=== PATIENT | female | born 1995 | race Caucasian/White ===

== ENCOUNTER 2018-06-15 20:05 | Inpatient (IN) | payer OTHER ==
[2018-06-15] MEDS ORDERED: TUBERCULIN PPD 5 TU/0.1ML SYRINGE (IN PATIENT USE ONLY) ID ONE (20:32)
[2018-06-15 21:35] VITALS: BMI 34.7
[2018-06-15 21:57] LABS: RETICULOCYTES 2.33 % (0.5-1.5)
[2018-06-15 21:58] LABS: BASO % 0.2 % (0-2.0); EOS % 2.5 % (0-4.5); HEMATOCRIT 35.3 % (32.4-45.2); HEMOGLOBIN 12.4 GM/dL (10.7-15.3); LYMPH % 20.5 % (8-40); MCH 29.9 pg (25.7-33.7); MCHC 35.2 g/dl (32.0-36.0); MEAN CELL VOLUME 84.7 fl (80-96); MEAN PLT VOLUME 10.3 fl (7.5-11.1); NEUT % 69.8 % (42.8-82.8); PLATELET COUNT 195 K/MM3 (134-434); RBC 4.17 M/mm3 (3.60-5.2); RDW 14.9 % (11.6-15.6)
[2018-06-15 22:13] LABS: INR 1.03 (0.83-1.09); PROTHROMBIN TIME (PATIENT) 12.2 SEC (9.7-13.0)
[2018-06-15 22:16] LABS: ACTIVATED PTT 25.8 SECONDS (25.2-36.5)
[2018-06-15 22:37] LABS: URIC ACID 4.8 mg/dL (2.6-7.2)
[2018-06-15 22:38] LABS: ANION GAP 9 MMOL/L (8-16); BLOOD UREA NITROGEN 10 mg/dL (7-18); CALCIUM 8.7 mg/dL (8.5-10.1); CHLORIDE 104 mmol/L (98-107); CO2 24 mmol/L (21-32); CREATININE 0.8 mg/dL (0.55-1.3); GLUCOSE,RANDOM 83 mg/dL (74-106); POTASSIUM 4.3 mmol/L (3.5-5.1); SODIUM 137 mmol/L (136-145)
[2018-06-15] MEDS ORDERED: DINOPROSTONE 10 MG VAGINAL SUPPOSITORY VG ONE (23:15)
[2018-06-15 23:23] LABS: URINE APPEARANCE CLEAR; URINE BILIRUBIN NEGATIVE (<2.0 mg/dL); URINE COLOR LTYELLOW; URINE GLUCOSE (UA) NEGATIVE (NEGATIVE); URINE KETONE NEGATIVE (NEGATIVE); URINE LEUK ESTERASE NEGATIVE (NEGATIVE); URINE NITRITE NEGATIVE (NEGATIVE); URINE PROTEIN NEGATIVE (NEGATIVE); URINE UROBILINOGEN NEGATIVE mg/dL (0.2-1.0)
[2018-06-16] MEDS: DEXTROSE 5%-LACTATED RINGERS 1,000 ML IV SCH ×4 (02:55→21:34)
[2018-06-16] MEDS ORDERED: PROMETHAZINE HCL 25 MG/1 ML VIAL IVPUSH ONE (06:32)
[2018-06-16] MEDS ORDERED: BUTORPHANOL TARTRATE 1 MG/ML VIAL IVPB ONE (06:32)
--- NOTE | 2018-06-16 06:37 | HP ---
Past Medical History - Primary Care Physician PCP:: Anna Murillo - Admission Chief Complaint: Gestational Hypertension History of Present Illness: 22 yo P0 EGA 38.5 weeks admittrted due to gestational HTN for induction of labor No ROM RUQ pain bleeding History Source: Patient - Past Medical History ...: 1 ...Para: 0 ...Term: 0 ...: 0 ...Spon : 0 ...Induced : 0 ...Multiple Gestation: 0 ...LMP: 09/26/17 ... Weeks Gestation by Dates: 38.5 ...EDC by Dates: 06/24/18 - Past Surgical History Past Surgical History: Yes: None Hx Myomectomy: No Hx Transabdominal Cerclage: No - Smoking History Smoking history: Never smoked Have you smoked in the past 12 months: No - Alcohol/Substance Use Hx Alcohol Use: No History of Substance Use: reports: None - Social History Usual Living Arrangement: Yes: With Spouse History of Recent Travel: No Home Medications - Allergies Allergies/Adverse Reactions: Allergies Allergy/AdvReac Type Severity Reaction Status Date / Time No Known Allergies Allergy Verified 11/23/15 09:57 - Home Medications Home Medications: Ambulatory Orders Vitamins (Sjr) - 1 tab PO DAILY 05/07/18 Review of Systems - Review of Systems Constitutional: reports: No Symptoms Eyes: reports: No Symptoms HENT: reports: No Symptoms Neck: reports: No Symptoms Cardiovascular: reports: No Symptoms Respiratory: reports: No Symptoms Gastrointestinal: reports: No Symptoms Genitourinary: reports: No Symptoms Breasts: reports: No Symptoms Reported Musculoskeletal: reports: No Symptoms Integumentary: reports: No Symptoms Neurological: reports: No Symptoms Endocrine: reports: No Symptoms Hematology/Lymphatic: reports: No Symptoms Psychiatric: reports: No Symptoms Physical Exam - Maternity Vital Signs: Vital Signs Temperature 98.4 F 06/16/18 06:00 Pulse Rate 87 06/16/18 06:00 Respiratory Rate 20 06/16/18 06:00 Blood Pressure 114/50 L 06/16/18 06:00 O2 Sat by Pulse Oximetry (%) Constitutional: Yes: Well Nourished, No Distress Neck: Yes: WNL Cardiovascular: Yes: WNL Breast(s): Yes: WNL - Abdominal Exam/OB Fundal Height: 39 Number of Fetuses: Single Presentation: Vertex Contractions: No Heart Rate (range): 140 Category: I Decelerations: None - Vaginal Exam/OB Vaginal Bleediing: No Dilatation (cm): 2 Effacement (%): 50 Amniotic Membrane Status: Intact - Physical Exam Edema: No - Labs Lab Results: CBC, BMP 06/15/18 21:10 06/15/18 21:10 Hemorrhage Risk Assessment - Risk Factors Risk Score: 1 Risk Level: Medium Risk Problem List - Problems (1) Gestational hypertension Code(s): O13.9 - GESTATIONAL HTN W/O SIGNIFICANT PROTEINURIA, UNSP TRIMESTER (2) 38 weeks gestation of Code(s): Z3A.38 - 38 WEEKS GESTATION OF Assessment/Plan IUP at 38..5 weeks gestational HTN Plan Cervidil preeclampsia labs
--- NOTE | 2018-06-16 10:14 | PN ---
Ante-Partal Exam - Subjective Subjective: Pt having some cramping, no significant pain overnight. Vital Signs: Vital Signs Temperature 98.9 F 06/16/18 08:00 Pulse Rate 96 H 06/16/18 09:00 Respiratory Rate 18 06/16/18 09:00 Blood Pressure 129/79 06/16/18 09:00 O2 Sat by Pulse Oximetry (%) Bleeding: No Headache: No Visual changes: No Right upper quadrant pain: No Pain (scale 1-10): 2 - Contractions Contractions: Yes Regularity: Irregular Intensity: Mild Monitor Mode: External - Exam during Labor Heart Rate: 130 Variability: Moderate Category: I Monitor Accelerations: Present Monitor Decelerations: None Exam: Vaginal Dilatation (cm): 2.5 Effacement (%): 50 Amniotic Membrane Status: Intact Presentation: Vertex Station: -2 - Assessment/Plan Assessment/Plan: Cervidil removed at 9 am to start pitocin at this time epidural or IV pain meds as needed Gestational HTN diagnosed in office - BPs have been within normal range since admission, denies WOO/RUQ pain/changes in vision GBS negative continue current management
[2018-06-16] MEDS ORDERED: OXYTOCIN 30 UNITS in 0.9% NS 30 UNIT/500 ML INFUS.BAG IVPB SCH (10:15)
[2018-06-16] MEDS: ELECTROLYTE-148 SOLN 1,000 ML IV SCH (22:30)
[2018-06-16] MEDS ORDERED: FENTANYL/BUPIVACAINE/NS/PF - PCEA - 50 ML DISP.SYRIN EP ONE (22:58)
[2018-06-16] MEDS ORDERED: NALOXONE HCL 0.4 MG/ML VIAL IVPUSH PRN (23:08)
[2018-06-16] MEDS ORDERED: BUPIVACAINE HCL/PF 0.25% (2.5MG/ML) 10 ML VIAL ONE (23:11)
[2018-06-16] MEDS ORDERED: FENTANYL/BUPIVACAINE/NS/PF - PCEA - 50 ML DISP.SYRIN EP SCH (23:15)
[2018-06-17] MEDS ORDERED: FENTANYL/BUPIVACAINE/NS/PF - PCEA - 50 ML DISP.SYRIN EP ONE ×2 (03:51→08:25)
[2018-06-17] MEDS: ELECTROLYTE-148 SOLN 1,000 ML IV SCH ×2 (05:48→06:45)
[2018-06-17] MEDS ORDERED: CITRIC ACID/SODIUM CITRATE 30 ML UNIT-DOSE CUP PO ONE (09:15)
[2018-06-17] MEDS ORDERED: LIDO 2%/EPI 1:200000 PRESRVFRE (20 ML SDVIAL) ONE (10:22)
--- NOTE | 2018-06-17 10:23 | PN ---
Ante-Partal Exam - Subjective Subjective: Pt comfortable. Feeling cramps but not strong contractions. Vital Signs: Vital Signs Temperature 98.8 F 06/17/18 07:00 Pulse Rate 91 H 06/17/18 10:00 Respiratory Rate 18 06/17/18 10:00 Blood Pressure 133/79 06/17/18 10:00 O2 Sat by Pulse Oximetry (%) 100 06/17/18 10:00 Bleeding: No Headache: No Visual changes: No Right upper quadrant pain: No Pain (scale 1-10): 2 - Contractions Contractions: Yes Regularity: Irregular - Exam during Labor Variability: Moderate Category: I Monitor Accelerations: Present Monitor Decelerations: None Exam: Vaginal Dilatation (cm): 3 Effacement (%): 50 Amniotic Membrane Status: Ruptured Amniotic Fluid: Clear Presentation: Vertex Station: -2 - Assessment/Plan Assessment/Plan: 22 y/o with SIUP, IOL for gHTN, 38.6 weeks today FHTS at 1 AROm for clear fluid at this check start pitocin continue induction
--- NOTE | 2018-06-17 10:25 | PN ---
Ante-Partal Exam - Subjective Subjective: Pt comfortable s/p epidural. Vital Signs: Vital Signs Temperature 98.8 F 06/17/18 07:00 Pulse Rate 91 H 06/17/18 10:00 Respiratory Rate 18 06/17/18 10:00 Blood Pressure 133/79 06/17/18 10:00 O2 Sat by Pulse Oximetry (%) 100 06/17/18 10:00 Bleeding: Yes Bleeding Description: Mild Headache: No Visual changes: No Right upper quadrant pain: No Pain (scale 1-10): 0 - Contractions Contractions: Yes Regularity: Irregular Intensity: Mod/Strong Monitor Mode: External - Exam during Labor Variability: Moderate Category: I Monitor Accelerations: Present Monitor Decelerations: None Exam: Vaginal Dilatation (cm): 3 Effacement (%): 50 Amniotic Membrane Status: Ruptured Amniotic Fluid: Clear Presentation: Vertex Station: -2 - Assessment/Plan Assessment/Plan: No progress IOL for gHTN now 39 weeks discussed options with patient will plan for delivery risks/benefits/alternatives discussed consents signed nursing/anesthesia aware
[2018-06-17] MEDS ORDERED: ceFAZolin SODIUM 1 GM VIAL ONE (10:27)
[2018-06-17] MEDS ORDERED: OXYTOCIN 20 UNITS in 0.9% NS 20 UNIT/1,000 ML INFUS.BAG IV ONE (10:34)
[2018-06-17] MEDS ORDERED: MIDAZOLAM HCL 2 MG/2 ML SINGLE DOSE VIAL ONE (10:45)
[2018-06-17] MEDS ORDERED: IBUPROFEN 600 MG TABLET (FP) PO PRN (10:57)
[2018-06-17] MEDS ORDERED: oxyCODONE HCL 5 MG TABLET PO PRN ×2 (11:11)
[2018-06-17] MEDS ORDERED: METHYLERGONOVINE MALEATE 0.2 MG/1 ML AMP IM PRN (11:11)
[2018-06-17] MEDS ORDERED: OXYTOCIN 20 UNITS in 0.9% NS 20 UNIT/1,000 ML INFUS.BAG IV SCH (11:15)
--- NOTE | 2018-06-17 11:16 | OP ---
Operative Note - Note: Operative Date: 06/17/18 Pre-Operative Diagnosis: Failure to dilate/descend Operation: Primary delivery Findings: live male infant Post-Operative Diagnosis: Same as Pre-op Surgeon: Anna Murillo Risk Engineer: Octavio Wolfe Anesthesiologist/OPERATOR BEAR[employer] SYSTEMS: Hiren Correa Anesthesia: Epidural Specimens Removed: placenta Estimated Blood Loss (mls): 600 Operative Report Dictated: Yes
[2018-06-17] MEDS: PRENATAL VITAMINS W/ FOLIC ACID TABLET (FP) PO SCH (13:22)
[2018-06-18] MEDS: ACETAMINOPHEN 325 MG TABLET (FP) PO PRN ×3 (01:41→20:48)
[2018-06-18] MEDS: SIMETHICONE 80 MG TAB.CHEW (FP) PO PRN ×3 (01:41→20:48)
[2018-06-18] MEDS: IBUPROFEN 600 MG TABLET (FP) PO PRN ×3 (01:42→20:48)
[2018-06-18 08:30] LABS: BASO % 0.4 % (0-2.0); EOS % 0.9 % (0-4.5); HEMATOCRIT 34.3 % (32.4-45.2); LYMPH % 12.9 % (8-40); MCH 27.8 pg (25.7-33.7); MCHC 32.1 g/dl (32.0-36.0); MEAN CELL VOLUME 86.6 fl (80-96); MEAN PLT VOLUME 9.8 fl (7.5-11.1); MONO % 8.2 % (3.8-10.2); NEUT % 77.6 % (42.8-82.8); PLATELET COUNT 134 K/MM3 (134-434); RBC 3.95 M/mm3 (3.60-5.2); WHITE BLOOD COUNT 13.5 K/mm3 (4.0-10.0)
[2018-06-18] MEDS: PRENATAL VITAMINS W/ FOLIC ACID TABLET (FP) PO SCH (09:02)
--- NOTE | 2018-06-18 09:48 | PN ---
Post Progress Note - Subjective Subjective: Pt doing well. Pain controlled. Tolerating clear diet. Not yet ambulating. NO complaints. Type of Delivery: Primary C/S Vital Signs: Vital Signs Temperature 97.4 F L 06/18/18 06:00 Pulse Rate 81 06/18/18 06:00 Respiratory Rate 16 06/18/18 09:00 Blood Pressure 106/74 06/18/18 06:00 O2 Sat by Pulse Oximetry (%) 100 06/17/18 21:00 Uterus: Yes: Fundus Firm Incision: Yes: Dressing dry and intact Abdomen/GI: Yes: Abdomen soft, Tolerating PO (clears). No: Passing flatus Lochia, amount: Small Extremities: Yes: Calves non-tender Perineum: No: Laceration Activity: Ambulating - Labs Labs: CBC WBC 13.5 K/mm3 (4.0-10.0) H 06/18/18 07:45 RBC 3.95 M/mm3 (3.60-5.2) 06/18/18 07:45 Hgb 11.0 GM/dL (10.7-15.3) 06/18/18 07:45 Hct 34.3 % (32.4-45.2) 06/18/18 07:45 MCV 86.6 fl (80-96) 06/18/18 07:45 MCH 27.8 pg (25.7-33.7) 06/18/18 07:45 MCHC 32.1 g/dl (32.0-36.0) 06/18/18 07:45 RDW 15.0 % (11.6-15.6) 06/18/18 07:45 Plt Count 134 K/MM3 (134-434) D 06/18/18 07:45 MPV 9.8 fl (7.5-11.1) 06/18/18 07:45 Absolute Neuts (auto) 10.5 K/mm3 (1.5-8.0) H 06/18/18 07:45 Neutrophils % 77.6 % (42.8-82.8) 06/18/18 07:45 Lymphocytes % 12.9 % (8-40) D 06/18/18 07:45 Monocytes % 8.2 % (3.8-10.2) 06/18/18 07:45 Eosinophils % 0.9 % (0-4.5) 06/18/18 07:45 Basophils % 0.4 % (0-2.0) 06/18/18 07:45 Nucleated RBC % 0 % (0-0) 06/18/18 07:45 Retic Count 2.33 % (0.5-1.5) H 06/15/18 21:10 Haptoglobin 191 mg/dL (34-200) 06/15/18 21:10 Problem List - Problems (1) delivery delivered Code(s): O82 - ENCOUNTER FOR DELIVERY WITHOUT INDICATION Assessment/Plan 22 y/o POD#1 s/p primary delivery AFVSS regular diet encourage ambulation routine care
[2018-06-18] MEDS ORDERED: BISACODYL 10 MG SUPP.RECT RC PRN (11:11)
--- NOTE | 2018-06-18 15:38 | PN ---
Progress Note (short form) - Note Progress Note: Anesthesia postop note 22 y/o F s/p epidural anesthesia for labor and then section, duramorph POD#1, vss, aaox3, no complaints, sensory motor intact distally, pain well controlled. No anesthesia complications.
[2018-06-19] MEDS: ACETAMINOPHEN 325 MG TABLET (FP) PO PRN ×4 (01:56→20:59)
[2018-06-19] MEDS: IBUPROFEN 600 MG TABLET (FP) PO PRN ×3 (01:56→15:41)
[2018-06-19] MEDS: SIMETHICONE 80 MG TAB.CHEW (FP) PO PRN ×4 (01:56→20:59)
[2018-06-19] MEDS: PRENATAL VITAMINS W/ FOLIC ACID TABLET (FP) PO SCH (09:42)
--- NOTE | 2018-06-19 14:33 | PN ---
Post Progress Note - Subjective Subjective: 22 yo Para 1 status post primary , seen and evaluated. Doing well. Post Day: 2 Type of Delivery: Primary C/S Vital Signs: Vital Signs Temperature 98.6 F 06/19/18 08:46 Pulse Rate 77 06/19/18 08:46 Respiratory Rate 14 06/19/18 08:46 Blood Pressure 124/67 06/19/18 08:46 O2 Sat by Pulse Oximetry (%) 100 06/17/18 21:00 Breast Exam: Yes: Soft Uterus: Yes: Fundus Firm Incision: Yes: Dressing dry and intact Abdomen/GI: Yes: Abdomen soft, Tolerating PO Lochia: Yes: Rubra Lochia, amount: Small Extremities: Yes: Calves non-tender Activity: Ambulating - Labs Labs: CBC WBC 13.5 K/mm3 (4.0-10.0) H 06/18/18 07:45 RBC 3.95 M/mm3 (3.60-5.2) 06/18/18 07:45 Hgb 11.0 GM/dL (10.7-15.3) 06/18/18 07:45 Hct 34.3 % (32.4-45.2) 06/18/18 07:45 MCV 86.6 fl (80-96) 06/18/18 07:45 MCH 27.8 pg (25.7-33.7) 06/18/18 07:45 MCHC 32.1 g/dl (32.0-36.0) 06/18/18 07:45 RDW 15.0 % (11.6-15.6) 06/18/18 07:45 Plt Count 134 K/MM3 (134-434) D 06/18/18 07:45 MPV 9.8 fl (7.5-11.1) 06/18/18 07:45 Absolute Neuts (auto) 10.5 K/mm3 (1.5-8.0) H 06/18/18 07:45 Neutrophils % 77.6 % (42.8-82.8) 06/18/18 07:45 Lymphocytes % 12.9 % (8-40) D 06/18/18 07:45 Monocytes % 8.2 % (3.8-10.2) 06/18/18 07:45 Eosinophils % 0.9 % (0-4.5) 06/18/18 07:45 Basophils % 0.4 % (0-2.0) 06/18/18 07:45 Nucleated RBC % 0 % (0-0) 06/18/18 07:45 Retic Count 2.33 % (0.5-1.5) H 06/15/18 21:10 Haptoglobin 191 mg/dL (34-200) 06/15/18 21:10 Assessment/Plan Status post primary Ambulation Analgesia as needed Continue post op care
[2018-06-20 08:13] LABS: BASO % 0.5 % (0-2.0); EOS % 4.8 % (0-4.5); HEMATOCRIT 30.7 % (32.4-45.2); HEMOGLOBIN 9.9 GM/dL (10.7-15.3); LYMPH % 21.8 % (8-40); MCHC 32.4 g/dl (32.0-36.0); MEAN CELL VOLUME 86.5 fl (80-96); MEAN PLT VOLUME 9.8 fl (7.5-11.1); MONO % 5.2 % (3.8-10.2); NEUT % 67.7 % (42.8-82.8); PLATELET COUNT 193 K/MM3 (134-434); RBC 3.55 M/mm3 (3.60-5.2); RDW 15.1 % (11.6-15.6); WHITE BLOOD COUNT 10.4 K/mm3 (4.0-10.0)
[2018-06-20] MEDS: ACETAMINOPHEN 325 MG TABLET (FP) PO PRN ×4 (08:53→23:56)
[2018-06-20] MEDS: SIMETHICONE 80 MG TAB.CHEW (FP) PO PRN ×4 (08:53→23:56)
[2018-06-20] MEDS: IBUPROFEN 600 MG TABLET (FP) PO PRN ×4 (08:54→23:55)
[2018-06-20] MEDS: PRENATAL VITAMINS W/ FOLIC ACID TABLET (FP) PO SCH (10:00)
--- NOTE | 2018-06-20 14:14 | PN ---
Post Progress Note - Subjective Subjective: 22 yo Para 1 status post primary , seen and evaluated. Doing well Post Day: 2 Type of Delivery: Primary C/S Vital Signs: Vital Signs Temperature 98.5 F 06/20/18 10:00 Pulse Rate 93 H 06/20/18 10:00 Respiratory Rate 20 06/20/18 10:00 Blood Pressure 126/84 06/20/18 10:00 O2 Sat by Pulse Oximetry (%) 100 06/17/18 21:00 Breast Exam: Yes: Soft Uterus: Yes: Fundus Firm Incision: Yes: Dressing dry and intact Abdomen/GI: Yes: Abdomen soft, Tolerating PO Lochia: Yes: Rubra Lochia, amount: Small Extremities: Yes: Calves non-tender Activity: Ambulating - Labs Labs: CBC WBC 10.4 K/mm3 (4.0-10.0) H 06/20/18 07:30 RBC 3.55 M/mm3 (3.60-5.2) L 06/20/18 07:30 Hgb 9.9 GM/dL (10.7-15.3) L 06/20/18 07:30 Hct 30.7 % (32.4-45.2) L 06/20/18 07:30 MCV 86.5 fl (80-96) 06/20/18 07:30 MCH 28.0 pg (25.7-33.7) 06/20/18 07:30 MCHC 32.4 g/dl (32.0-36.0) 06/20/18 07:30 RDW 15.1 % (11.6-15.6) 06/20/18 07:30 Plt Count 193 K/MM3 (134-434) D 06/20/18 07:30 MPV 9.8 fl (7.5-11.1) 06/20/18 07:30 Absolute Neuts (auto) 7.1 K/mm3 (1.5-8.0) 06/20/18 07:30 Neutrophils % 67.7 % (42.8-82.8) 06/20/18 07:30 Lymphocytes % 21.8 % (8-40) D 06/20/18 07:30 Monocytes % 5.2 % (3.8-10.2) 06/20/18 07:30 Eosinophils % 4.8 % (0-4.5) H D 06/20/18 07:30 Basophils % 0.5 % (0-2.0) 06/20/18 07:30 Nucleated RBC % 0 % (0-0) 06/20/18 07:30 Retic Count 2.33 % (0.5-1.5) H 06/15/18 21:10 Haptoglobin 191 mg/dL (34-200) 06/15/18 21:10 Assessment/Plan Status post primary Ambulation Analgesia as needed Continue post op care
[2018-06-21] MEDS: IBUPROFEN 600 MG TABLET (FP) PO PRN (07:30)
[2018-06-21] MEDS: ACETAMINOPHEN 325 MG TABLET (FP) PO PRN (07:31)
[2018-06-21 08:52] VITALS: BP 118/74; PULSE 79; TEMP 98.4
[2018-06-21] MEDS: PRENATAL VITAMINS W/ FOLIC ACID TABLET (FP) PO SCH (10:21)
--- NOTE | 2018-06-22 16:06 | PATH ---
Surgical Pathology Report Patient Name: LEIGH SHEEHAN Med. Rec. #: [id number] /Age/Gender: 1995 (Age: 22) / F Account: [id number] Location: [facility] OBS/INTENSIVE CARE ANAESTHETIST Taken: 06/17/2018 Received: 06/18/2018 Reported: 06/22/2018 Physicians: Anna Murillo M.D. Specimen(s) Received PLACENTA Clinical History , 39 weeks, gestational hypertension, suspected macrosomia Primary Final Diagnosis PLACENTA, DELIVERY: FOCALLY DISRUPTED THIRD TRIMESTER PLACENTA WITH SUBCHORIONIC AND INTERVILLOUS FIBRIN, FOCAL CALCIFICATION, THREE VESSEL UMBILICAL CORD AND UNREMARKABLE PLACENTAL MEMBRANES. Electronically Signed Panchito Caballero M.D. Gross Description The specimen is received fresh labeled placenta and is a 480 gram, 15.0 x 14.5 x 3.3 cm. placenta with attached membranes and umbilical cord. The attached membranes are johnson, translucent with focal opacities and insert marginally. The umbilical cord measures 24 cm. in length and averages 1.1 cm. in diameter. The cord inserts eccentrically, 2.5 cm. to the nearest margin. No true knots or strictures are identified. Cut surface of the umbilical cord reveals 3 vessels. The surface is jimenez-blue with minimal fibrin deposition and appropriate caliber vessels. The maternal surface is red-brown with focal defects. Sectioning reveals red-brown, spongy parenchyma. No lesions are identified. Family [employer] Counsellor sections are submitted in three cassettes as follows: 1- membrane rolls and umbilical cord; 2-3- full thickness sections of placenta. 06/21/2018 [facility]06/21/2018
--- NOTE | 2018-06-23 12:35 | DS ---
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 Vital Signs: Vital Signs Temperature 98.4 F 06/21/18 08:48 Pulse Rate 79 06/21/18 08:48 Respiratory Rate 20 06/21/18 08:48 Blood Pressure 118/74 06/21/18 08:48 O2 Sat by Pulse Oximetry (%) 100 06/17/18 21:00 Constitutional: Yes: Well Nourished, No Distress, Calm Eyes: Yes: Conjunctiva Clear, EOM Intact HENT: Yes: Atraumatic, Normocephalic Neck: Yes: Trachea Midline Cardiovascular: Yes: Regular Rate and Rhythm Respiratory: Yes: Regular Gastrointestinal: Yes: Normal Bowel Sounds, Soft Wound/Incision: Yes: Clean/Dry, Well Approximated Psychiatric: Yes: Alert, Oriented Labs: CBC, BMP 06/20/18 07:30 06/15/18 21:10 Delivery - Delivery Section: Primary, Low Flap Transverse Type of Anesthesia: Epidural Episiotomy/Laceration: None EBL (cc): 600 Delivery, Single - Stages of Labor Date of Delivery: 06/17/18 Time of Delivery: 10:45 Time Placenta Delivered: 10:46 - Condition of 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 After being diagnosed with arrest of dilation/descent after 36 hours of induction, the patient underwent an uncomplicated primary section (see op note). The patient had an uncomplicated post /post op recovery and was discharged home on post op day 3. Condition: Good - Instructions Diet, Activity, Other Instructions: Physical activity Resume your normal everyday activity as tolerated no heavy lifting or exercise until seen by your surgeon. You may walk unlimited michele of and climb stairs. You may resume driving the car when you feel safe and comfortable behind the wheel. No sexual activity as instructed. Wound care If you have a bandage, leave it on, and keep dry for 48-72 hours. After that time discard the outer bandage. If they are tapes on the skin under the out of bandage leave them in place. They will peel off in the next 7 to 10 days. Do Not Peel them off. You may shower the day after surgery. If there are tapes present on the skin, you may shower over them. Diet There are no dietary restrictions. Eat healthy, high-fiber foods. Drink 6 to 8 glasses of liquid each day. This will assist in keeping your bowels are regular. Pain management You may take Tylenol or acetaminophen or Ibuprofen (for example, Motrin, Advil etc.) from my pain prescription medication is ordered should be taken as prescribed for moderate to severe pain. Call MD for any of the following: Severe pain not relieved by medication Fever of 101 or higher Excessive bleeding or drainage on dressing Inability to urinate Disposition: HOME - Home Medications Comprehensive Discharge Medication List: Ambulatory Orders Vitamins (Sjr) - 1 tab PO DAILY 06/16/18 Ibuprofen [Motrin -] 600 mg PO QID #28 tablet 06/21/18
== END 2018-06-21 14:00 | disposition home or self-care (01) | DRG 788 ==
LOC: JLDR 20:05 → J3W 06-17 12:42
PROVIDERS: ADMIT Obstetrics & Gynecology; ATTEND Obstetrics & Gynecology
PROC: 10D00Z1 Extraction of Products of Conception, Low, Open Approach (ICD-10-PCS; principal; 2018-06-15)
PROC: 3E0P7VZ Introduction of Hormone into Female Reproductive, Via Natural or Artificial Opening (ICD-10-PCS; 2018-06-15)
DX: O13.3 Gestational [pregnancy-induced] hypertension without significant proteinuria, third trimester (principal); O32.4XX0 Maternal care for high head at term, not applicable or unspecified; O62.0 Primary inadequate contractions; Z3A.38 38 weeks gestation of pregnancy; Z37.0 Single live birth
CPT/HCPCS: 36415; 80048; 81003; 82977; 83010; 84450; 84460; 84550; 85025; 85032; 85044; 85610; 85730; 86593; 86850; 86900; 86901; 88307-TC

== ENCOUNTER 2020-07-09 12:03 | Emergency (ER) | payer OTHER ==
[2020-07-09 12:10] VITALS: BP 131/71; PULSE 87; TEMP 98.2; BMI 25.0
[2020-07-09 13:02] LABS: BASO % 0.6 % (0-2.0); EOS % 2.8 % (0-4.5); HEMOGLOBIN 14.9 GM/dL (10.7-15.3); LYMPH % 15.9 % (8-40); MCH 30.3 pg (25.7-33.7); MEAN CELL VOLUME 89.3 fl (80-96); MEAN PLT VOLUME 9.7 fl (7.5-11.1); MONO % 5.2 % (3.8-10.2); NEUT % 75.5 % (42.8-82.8); PLATELET COUNT 237 K/MM3 (134-434); RBC 4.93 M/mm3 (3.60-5.2); RDW 12.7 % (11.6-15.6); WHITE BLOOD COUNT 10.6 K/mm3 (4.0-10.0)
[2020-07-09 13:19] LABS: PH,URINE >= 9.0 (5.0-8.0); URINE APPEARANCE CLEAR; URINE BILIRUBIN NEGATIVE (NEGATIVE); URINE COLOR YELLOW; URINE GLUCOSE (UA) NEGATIVE (NEGATIVE); URINE KETONE NEGATIVE (NEGATIVE); URINE LEUK ESTERASE NEGATIVE (NEGATIVE); URINE NITRITE NEGATIVE (NEGATIVE); URINE PROTEIN NEGATIVE (NEGATIVE); URINE UROBILINOGEN 0.2 mg/dL (0.2-1.0)
[2020-07-09 13:22] LABS: HCG,QUALITATIVE URINE Negative
[2020-07-09 13:26] LABS: POTASSIUM 3.8 mmol/L (3.5-5.1)
[2020-07-09 13:28] LABS: ALBUMIN 4.6 g/dl (3.4-5.0); BLOOD UREA NITROGEN 9.3 mg/dL (7-18); CALCIUM 9.8 mg/dL (8.5-10.1)
[2020-07-09 13:31] LABS: CREATININE 0.8 mg/dL (0.55-1.3)
[2020-07-09 13:33] LABS: BILIRUBIN,TOTAL 0.4 mg/dL (0.2-1); TOT PROT 7.7 g/dl (6.4-8.2)
[2020-07-09] MEDS ORDERED: KETOROLAC TROMETHAMINE 30 MG/1 ML VIAL IM ONE (14:44)
[2020-07-09] MEDS ORDERED: DICYCLOMINE HCL 10 MG/5 ML PO ONE (14:44)
[2020-07-09] MEDS ORDERED: KETOROLAC TROMETHAMINE 30 MG/1 ML VIAL ONE ×2 (15:12→15:21)
[2020-07-09] MEDS ORDERED: DICYCLOMINE HCL 10 MG CAPSULE ONE (15:15)
== END 2020-07-09 15:30 | disposition home or self-care (01) ==
LOC: JERFT 12:03
PROC: 3E023GC Introduction of Other Therapeutic Substance into Muscle, Percutaneous Approach (ICD-10-PCS; principal; 2020-07-09)
DX: R10.30 Lower abdominal pain, unspecified (principal)
CPT/HCPCS: 36415; 76830-TC; 80053; 81003; 83690; 84703; 85025; 99284-25

== ENCOUNTER 2022-10-14 13:01 | Emergency (ER) | payer OTHER ==
[2022-10-14 13:08] VITALS: BP 120/68; PULSE 87; RESP 18; TEMP 98.3; BMI 27.4
[2022-10-14] MEDS ORDERED: SODIUM CHLORIDE 0.9% 500 ML INFUS.BAG IV ONE (13:35)
[2022-10-14] MEDS ORDERED: ONDANSETRON 4 MG/2 ML VIAL IVPB ONE (13:36)
[2022-10-14] MEDS ORDERED: ONDANSETRON 4 MG/2 ML VIAL ONE (14:06)
[2022-10-14 14:19] LABS: CALCIUM 10.3 mg/dL (8.5-10.1)
[2022-10-14 14:21] LABS: ALBUMIN 4.6 g/dl (3.4-5.0); BLOOD UREA NITROGEN 12.1 mg/dL (7-18)
[2022-10-14 14:22] LABS: CREATININE 0.8 mg/dL (0.55-1.3)
[2022-10-14 14:24] LABS: BILIRUBIN,TOTAL 0.8 mg/dL (0.2-1); TOT PROT 8.2 g/dl (6.4-8.2)
== END 2022-10-14 15:30 | disposition home or self-care (01) ==
LOC: JER 13:01
PROC: 3E033GC Introduction of Other Therapeutic Substance into Peripheral Vein, Percutaneous Approach (ICD-10-PCS; principal; 2022-10-14)
DX: K52.9 Noninfective gastroenteritis and colitis, unspecified (principal)
CPT/HCPCS: 36415; 80053; 83690; 84703; 99284-25

== ENCOUNTER 2023-10-08 15:03 | Emergency (ER) | payer BC, OTHER ==
[2023-10-08 15:07] VITALS: BP 115/67; PULSE 77; RESP 20; TEMP 97.3; BMI 28.2
[2023-10-08] MEDS ORDERED: FAMOTIDINE 20 MG/50 ML IVPB 20 MG/50 ML MG IVPB ONE (16:16)
[2023-10-08] MEDS ORDERED: ACETAMINOPHEN INJECTION 100 ML IVPB ONE (16:16)
[2023-10-08] MEDS ORDERED: ONDANSETRON 4 MG/2 ML VIAL ONE (16:16)
[2023-10-08] MEDS: SODIUM CHLORIDE 0.9% 500 ML INFUS.BAG IV ONE (16:25)
[2023-10-08] MEDS: ONDANSETRON 4 MG/2 ML VIAL IVPUSH ONE (16:26)
[2023-10-08] MEDS: FAMOTIDINE 20 MG/50 ML IVPB 20 MG/50 ML MG IVPB ONE (16:26)
[2023-10-08] MEDS: ACETAMINOPHEN 1000 MG/100 ML BAG IVPB ONE (16:26)
[2023-10-08 16:27] LABS: BASO % 0.8 % (0-2.0); EOS % 0.3 % (0-4.5); HEMATOCRIT 42.7 % (32.4-45.2); HEMOGLOBIN 14.2 GM/dL (10.7-15.3); LYMPH % 13.2 % (8-40); MCH 29.5 pg (25.7-33.7); MCHC 33.3 g/dl (32.0-36.0); MEAN CELL VOLUME 88.6 fl (80-96); MEAN PLT VOLUME 9.5 fl (7.5-11.1); MONO % 6.1 % (3.8-10.2); NEUT % 79.6 % (42.8-82.8); PLATELET COUNT 307 10^3/uL (134-434); RBC 4.82 M/mm3 (3.60-5.2); RDW 13.5 % (11.6-15.6); WHITE BLOOD COUNT 14.2 K/mm3 (4.0-10.0)
[2023-10-08 16:48] LABS: POTASSIUM 3.3 mmol/L (3.5-5.1)
[2023-10-08 16:50] LABS: CALCIUM 9.9 mg/dL (8.5-10.1)
[2023-10-08 16:51] LABS: ALBUMIN 4.7 g/dl (3.4-5.0); BLOOD UREA NITROGEN 8.2 mg/dL (7-18)
[2023-10-08 16:54] LABS: CREATININE 0.8 mg/dL (0.55-1.3)
[2023-10-08 16:55] LABS: TOT PROT 8.2 g/dl (6.4-8.2)
[2023-10-08 16:56] LABS: BILIRUBIN,TOTAL 0.7 mg/dL (0.2-1)
[2023-10-08] MEDS ORDERED: MAG HYDROX/AL HYDROX/SIMETH 30 ML UNIT-DOSE CUP ONE (17:37)
[2023-10-08] MEDS: MAG HYDROX/AL HYDROX/SIMETH -MYLANTA- ORAL SUSPENSION PO ONE (17:40)
[2023-10-08 17:46] LABS: PH,URINE 7.5 (5.0-8.0); URINE APPEARANCE CLEAR; URINE BILIRUBIN NEGATIVE (NEGATIVE); URINE COLOR YELLOW; URINE GLUCOSE (UA) NEGATIVE (NEGATIVE); URINE KETONE 2+ (NEGATIVE); URINE LEUK ESTERASE NEGATIVE (NEGATIVE); URINE NITRITE NEGATIVE (NEGATIVE); URINE PROTEIN TRACE (NEGATIVE)
== END 2023-10-08 18:57 | disposition home or self-care (01) ==
LOC: JER 15:03
PROC: 3E033GC Introduction of Other Therapeutic Substance into Peripheral Vein, Percutaneous Approach (ICD-10-PCS; principal; 2023-10-08)
PROC: 3E030NZ Introduction of Analgesics, Hypnotics, Sedatives into Peripheral Vein, Open Approach (ICD-10-PCS; 2023-10-08)
PROC: 3E030GC Introduction of Other Therapeutic Substance into Peripheral Vein, Open Approach (ICD-10-PCS; 2023-10-08)
DX: R11.2 Nausea with vomiting, unspecified (principal); R19.7 Diarrhea, unspecified; R10.30 Lower abdominal pain, unspecified; N89.8 Other specified noninflammatory disorders of vagina
CPT/HCPCS: 36415; 80053; 81003; 83690; 84703; 85025; 87086; 87491; 87591; 87661; 99284-25; J0131

== ENCOUNTER 2023-11-11 15:03 | Observation (INO) | payer BC ==
[2023-11-11] MEDS ORDERED: ONDANSETRON 4 MG/2 ML VIAL ONE (15:47)
[2023-11-11] MEDS: SODIUM CHLORIDE 0.9% 1000 ML INFUS.BAG IV ONE (15:53)
[2023-11-11] MEDS: ONDANSETRON 4 MG/2 ML VIAL IVPUSH ONE (15:54)
[2023-11-11 16:01] LABS: BASO % 0.5 % (0-2.0); HEMATOCRIT 41.5 % (32.4-45.2); HEMOGLOBIN 13.9 GM/dL (10.7-15.3); LYMPH % 6.6 % (8-40); MCH 29.1 pg (25.7-33.7); MCHC 33.5 g/dl (32.0-36.0); MEAN CELL VOLUME 86.8 fl (80-96); MEAN PLT VOLUME 9.2 fl (7.5-11.1); MONO % 3.3 % (3.8-10.2); NEUT % 89.6 % (42.8-82.8); PLATELET COUNT 329 10^3/uL (134-434); RBC 4.77 M/mm3 (3.60-5.2); RDW 12.9 % (11.6-15.6); WHITE BLOOD COUNT 16.8 K/mm3 (4.0-10.0)
[2023-11-11] MEDS: KETOROLAC TROMETHAMINE 30 MG/1 ML VIAL IVPUSH ONE (16:23)
[2023-11-11] MEDS ORDERED: KETOROLAC TROMETHAMINE 30 MG/1 ML VIAL ONE (16:24)
[2023-11-11 16:27] LABS: POTASSIUM 3.9 mmol/L (3.5-5.1)
[2023-11-11 16:29] LABS: BLOOD UREA NITROGEN 6.7 mg/dL (7-18); CALCIUM 9.7 mg/dL (8.5-10.1)
[2023-11-11 16:30] LABS: ALBUMIN 4.4 g/dl (3.4-5.0)
[2023-11-11 16:33] LABS: CREATININE 0.7 mg/dL (0.55-1.3)
[2023-11-11 16:34] LABS: BILIRUBIN,TOTAL 0.5 mg/dL (0.2-1); TOT PROT 7.2 g/dl (6.4-8.2)
[2023-11-11] MEDS ORDERED: METOCLOPRAMIDE HCL INJECTION 10 MG/2 ML VIAL ONE (18:26)
[2023-11-11] MEDS ORDERED: morphine SULFATE 4 MG/ML VIAL ONE (18:28)
[2023-11-11] MEDS: morphine CARPU-JECT 4 MG/1 ML DISP.SYRIN IVPUSH ONE (18:36)
[2023-11-11] MEDS: METOCLOPRAMIDE HCL INJECTION 10 MG/2 ML VIAL IVPB ONE (18:36)
[2023-11-11 21:07] LABS: HCG,QUALITATIVE URINE Negative
[2023-11-11 21:08] LABS: EPI CELLS >36 /uL (0-25.1); HYALINE CASTS 3 /uL (0-3.1); URINE APPEARANCE CLOUDY; URINE BACTERIA 212 /uL (0-1359); URINE BILIRUBIN NEGATIVE (NEGATIVE); URINE COLOR DK YELLOW; URINE GLUCOSE (UA) NEGATIVE (NEGATIVE); URINE KETONE 4+ (NEGATIVE); URINE LEUK ESTERASE NEGATIVE (NEGATIVE); URINE NITRITE NEGATIVE (NEGATIVE); URINE PROTEIN 1+ (NEGATIVE); URINE RBC 54 /uL (0-23.9); URINE WBC 25 /uL (0-25.8)
[2023-11-12] MEDS: SODIUM CHLORIDE 0.9% 1000 ML INFUS.BAG IV ONE (00:42)
[2023-11-12] MEDS ORDERED: ONDANSETRON 4 MG/2 ML VIAL ONE (01:17)
[2023-11-12] MEDS: ONDANSETRON 4 MG/2 ML VIAL IVPUSH ONE (01:21)
[2023-11-12] MEDS ORDERED: HALOPERIDOL LACTATE 5 MG/ML ONE (02:42)
[2023-11-12] MEDS: HALOPERIDOL LACTATE 5 MG/ML IM ONE (02:56)
[2023-11-12] MEDS: CIPROFLOXACIN 400 MG/D5W 400 MG/200 ML IVPB IVPB ONE (04:58)
[2023-11-12] MEDS: CIPROFLOXACIN 500 MG TABLET (RESTRICTED TO ID) PO ONE (05:00)
[2023-11-12] MEDS ORDERED: TRIMETHOBENZAMIDE HCL 200MG/2ML INJ IM ONE (05:49)
[2023-11-12] MEDS: TRIMETHOBENZAMIDE HCL 200MG/2ML INJ IM ONE (06:01)
[2023-11-12 09:44] LABS: MAGNESIUM 1.5 mg/dL (1.8-2.4)
[2023-11-12 09:47] LABS: PHOSPHOROUS 1.6 mg/dL (2.5-4.9)
[2023-11-12] MEDS: LACTATED RINGERS SOLUTION 1,000 ML IV SCH (10:01)
[2023-11-12 11:18] VITALS: BMI 27.1
[2023-11-12 12:44] LABS: BASO % 0.2 % (0-2.0); HEMATOCRIT 39.2 % (32.4-45.2); HEMOGLOBIN 12.9 GM/dL (10.7-15.3); LYMPH % 9.4 % (8-40); MCH 29.2 pg (25.7-33.7); MCHC 32.9 g/dl (32.0-36.0); MEAN CELL VOLUME 88.7 fl (80-96); MEAN PLT VOLUME 9.9 fl (7.5-11.1); MONO % 4.4 % (3.8-10.2); PLATELET COUNT 256 10^3/uL (134-434); RBC 4.42 M/mm3 (3.60-5.2); RDW 12.7 % (11.6-15.6); WHITE BLOOD COUNT 14.9 K/mm3 (4.0-10.0)
[2023-11-12 12:45] LABS: POTASSIUM 3.2 mmol/L (3.5-5.1)
[2023-11-12 12:47] LABS: ALBUMIN 4.1 g/dl (3.4-5.0); BLOOD UREA NITROGEN 4.6 mg/dL (7-18); CALCIUM 8.7 mg/dL (8.5-10.1); MAGNESIUM 1.7 mg/dL (1.8-2.4)
[2023-11-12] MEDS: MAGNESIUM 2GM/50ML STERILE WATER IVPB IVPB ONE (12:48)
[2023-11-12 12:50] LABS: PHOSPHOROUS 1.8 mg/dL (2.5-4.9)
[2023-11-12 12:51] LABS: CREATININE 0.7 mg/dL (0.55-1.3)
[2023-11-12 12:52] LABS: BILIRUBIN,TOTAL 0.5 mg/dL (0.2-1); TOT PROT 6.9 g/dl (6.4-8.2)
[2023-11-12] MEDS: NAPH,MB-DB/K PH,MBDB POWDER PACKET PO SCH (13:53)
[2023-11-12] MEDS: TRIMETHOBENZAMIDE HCL 200MG/2ML INJ IM PRN (22:09)
[2023-11-13 08:46] LABS: BASO % 0.2 % (0-2.0); HEMATOCRIT 37.2 % (32.4-45.2); HEMOGLOBIN 12.9 GM/dL (10.7-15.3); LYMPH % 11.7 % (8-40); MCH 30.1 pg (25.7-33.7); MCHC 34.6 g/dl (32.0-36.0); MEAN PLT VOLUME 9.7 fl (7.5-11.1); MONO % 6.6 % (3.8-10.2); NEUT % 81.5 % (42.8-82.8); PLATELET COUNT 246 10^3/uL (134-434); RBC 4.27 M/mm3 (3.60-5.2); WHITE BLOOD COUNT 12.5 K/mm3 (4.0-10.0)
[2023-11-13 09:01] LABS: POTASSIUM 3.4 mmol/L (3.5-5.1)
[2023-11-13 09:06] LABS: BLOOD UREA NITROGEN 4.8 mg/dL (7-18); CALCIUM 9.3 mg/dL (8.5-10.1); MAGNESIUM 2.2 mg/dL (1.8-2.4)
[2023-11-13 09:08] LABS: CREATININE 0.6 mg/dL (0.55-1.3); PHOSPHOROUS 2.2 mg/dL (2.5-4.9)
[2023-11-13 09:10] LABS: BILIRUBIN,TOTAL 0.7 mg/dL (0.2-1)
[2023-11-13 09:13] LABS: TOT PROT 6.8 g/dl (6.4-8.2)
[2023-11-13] MEDS: ENOXAPARIN NA (PORCINE) 40 MG/0.4 ML DISP.SYRIN SQ SCH (10:10)
[2023-11-13] MEDS: METOCLOPRAMIDE HCL INJECTION 10 MG/2 ML VIAL IVPUSH ONE (13:02)
[2023-11-13] MEDS: METOCLOPRAMIDE HCL 10 MG TABLET (FP) PO ONE (13:02)
[2023-11-13] MEDS: LACTATED RINGERS SOLUTION 1,000 ML/1,000 ML INFUS.BAG IV SCH (16:45)
[2023-11-13] MEDS ORDERED: METOCLOPRAMIDE HCL INJECTION 10 MG/2 ML VIAL IVPUSH PRN (18:00)
[2023-11-13] MEDS: METOCLOPRAMIDE HCL 10 MG TABLET (FP) PO PRN (18:13)
[2023-11-13 20:59] VITALS: RESP 18
[2023-11-14 13:26] LABS: POTASSIUM 3.5 mmol/L (3.5-5.1)
[2023-11-14 13:27] LABS: CALCIUM 8.7 mg/dL (8.5-10.1)
[2023-11-14 13:28] LABS: MAGNESIUM 2.1 mg/dL (1.8-2.4)
[2023-11-14 13:31] LABS: CREATININE 0.6 mg/dL (0.55-1.3); PHOSPHOROUS 2.4 mg/dL (2.5-4.9)
[2023-11-15 07:52] VITALS: BP 119/79; PULSE 62; TEMP 97.6
[2023-11-15 08:06] LABS: POTASSIUM 3.4 mmol/L (3.5-5.1)
[2023-11-15 08:11] LABS: CALCIUM 8.6 mg/dL (8.5-10.1)
[2023-11-15 08:12] LABS: BLOOD UREA NITROGEN 8.9 mg/dL (7-18)
[2023-11-15 08:15] LABS: CREATININE 0.6 mg/dL (0.55-1.3)
== END 2023-11-15 13:11 | disposition home or self-care (01) ==
LOC: JER 15:03 → JERBED 11-12 05:54 → J6S 11-12 08:38
PROVIDERS: ADMIT Internal Medicine; ATTEND Internal Medicine
PROC: 3E023GC Introduction of Other Therapeutic Substance into Muscle, Percutaneous Approach (ICD-10-PCS; principal; 2023-11-12)
PROC: 3E0333Z Introduction of Anti-inflammatory into Peripheral Vein, Percutaneous Approach (ICD-10-PCS; 2023-11-12)
PROC: 3E0337Z Introduction of Electrolytic and Water Balance Substance into Peripheral Vein, Percutaneous Approach (ICD-10-PCS; 2023-11-12)
PROC: 3E03329 Introduction of Other Anti-infective into Peripheral Vein, Percutaneous Approach (ICD-10-PCS; 2023-11-12)
PROC: 3E033GC Introduction of Other Therapeutic Substance into Peripheral Vein, Percutaneous Approach (ICD-10-PCS; 2023-11-12)
DX: K52.9 Noninfective gastroenteritis and colitis, unspecified (principal); F12.90 Cannabis use, unspecified, uncomplicated; R11.2 Nausea with vomiting, unspecified; R10.9 Unspecified abdominal pain; K76.0 Fatty (change of) liver, not elsewhere classified
CPT/HCPCS: 36415; 74177-TC; 76705-TC; 80048; 80053; 81003; 83036; 83690; 83735; 84100; 84703; 85025; 87040; 87045; 87046; 87205; 87209; 87324; 87449; 87798; 93005; 93010; 96361; 96365; 96366; 96372; 96375; 96376; 99285-25; G0378; Q9967